=== PATIENT | male | born 1965 ===

== ENCOUNTER → 2020-06-13 09:23 | Outpatient (CLI) | payer OTHER | END | disposition home or self-care (01) | LOC: PPH VACUNA 09:23 | DX: Z23 Encounter for immunization (principal) ==

== ENCOUNTER → 2020-07-04 10:51 | Outpatient (CLI) | payer OTHER | END | disposition home or self-care (01) | LOC: PPH VACUNA 10:51 | DX: Z23 Encounter for immunization (principal) ==